=== PATIENT | male | born 1965 | race Caucasian/White ===

== ENCOUNTER 2018-01-26 19:45 | Emergency (ER) | payer MEDICAID, SELFPAY ==
[2018-01-26 19:50] VITALS: BP 164/99; PULSE 68; RESP 20; TEMP 36.8; O2SAT 97; BMI 25.9
--- NOTE | 2018-01-26 19:57 | XR_ITS ---
XR shoulder RT min 2V COMPARISON: None HISTORY: Right shoulder pain TECHNIQUE: 3 views right shoulder FINDINGS: The clavicle is intact. There is minor degenerative change of the AC joint with spurring superiorly and inferiorly. The humeral head and glenoid appear intact. There are no soft tissue calcifications. IMPRESSION: Mild degenerative changes of the AC joint, right shoulder negative for fracture
--- NOTE | 2018-01-26 21:31 | HMH.EDGENADL ---
ED Disposition Clinical Impression: Cervical radiculopathy Disposition: Home, Self-Care Condition on Discharge: Good Instructions: DI for Cervical Radiculopathy Additional Instructions: Follow-up with your primary care provider MRI of your cervical spine. Additional instructions for CONTROLLED SUBSTANCES: You have been prescribed a medication that is a controlled substance. Controlled substances include pain medications known as opiates and sedative nerve medications known as benzodiazepines. Some common opiates include: Codeine (such as Tylenol #3) Hydrocodone (Vicodin, Lortab, Lorcet, [place]) Oxycodone (Percocet, Percodan, Oxycodone, Oxy IR) Some common benzodiazepines include: Diazepam (Valium) Lorazepam (Ativan) Alprazolam (Xanax) Clonazepam (Klonopin) Oxazepam (Serax) All of these controlled substances are highly addictive and frequently abused. Misuse can and frequently does lead to addiction as well as overdose and . Medication should be stored in a locked cabinet or other secure storage unit. Do not store the medication in a motor vehicle. Short term supplies, 3 days or less, are prescribed because of the highly addictive nature of the medication. Any of the controlled substance medication NOT taken should be disposed of properly and NOT SAVED. The recommended method of disposing of unused medications is: Place the medicines in a sealable plastic bag. If the medicine is a solid, crush it or add water to dissolve it. Add something undesirable (cat litter, coffee grounds, etc.) Dispose of sealed bag in household trash Do not flush or pour unused medicines down a sink or drain. Controlled substances should not be shared, given away or sold. Because of the addictive nature and frequent abuse, these medications are sometimes stolen. These medications should be kept in a safe place where they cannot be stolen. Do not keep them in your car or purse. Lost or stolen prescriptions for controlled substances WILL NOT BE REFILLED in this emergency department, regardless of whether a police report was filed. Prescriptions: Oxycodone HCl/Acetaminophen [Percocet 5/325mg tablet] 1 tab PO Q6HP PRN #10 tab PRN Reason: Moderate To Severe Pain predniSONE [Prednisone 10mg Tab Dose-Pack] 10 mg PO DAILY #42 pack Referrals: Ghazala Moreno MD [Primary Care Provider] - - Critical Care Critical Care Time: No Attestation: On 01/26/18, the high probability of a clinically significant, sudden or life threatening deterioration of the following system(s) required my full and direct attention, intervention and personal management. The time I documented below is in addition to time spent performing reported procedures but includes the following listed in this critical care notation. Medical Decision Making - Doroteo Inquiry Pt receiving controlled substance: Yes Doroteo was queried for this patient: Yes Reference #:: [id number] Risks and benefits of using a controlled substance: were discussed with pt by me Comment: 2 rxs. last rx tramadol 06/13/17 Vital Signs: 01/26/18 19:50 Temperature 98.3 F Temperature Source Oral Pulse Rate [Right Radial] 68 Respiratory Rate 20 Blood Pressure [Right Arm] 164/99 Blood Pressure Mean [Right Arm] 120 Blood Pressure Position [Right Arm] Sitting 02 Sat by Pulse Oximetry 97 Orders (Tests/Meds): ED MEDICATIONS Discontinued Medications Generic Name Dose Route Start Last Admin Trade Name Maddie PRN Reason Stop Dose Admin Ketorolac Tromethamine 60 mg 01/26/18 19:57 01/26/18 20:00 Toradol 60mg/2ml Vial IM 01/26/18 19:58 60 mg ONCE ONE Administration Oxycodone/Acetaminophen 1 each 01/26/18 21:45 01/26/18 21:51 Percocet 5/325mg Tablet PO 01/26/18 21:46 1 each ONCE ONE Administration Prednisone 60 mg 01/26/18 21:45 01/26/18 21:51 Deltasone 20mg Tablet PO 01/26/18 21:46 60 mg ONCE ONE Administration - Radiology Data #1
[2018-01-26 22:04] VITALS: BP 146/92; PULSE 65; RESP 18; TEMP 36.7; O2SAT 98
== END 2018-01-26 22:04 | disposition home or self-care (01) ==
PROVIDERS: Emergency Provider Emergency Medicine; PCP Family Medicine
DX: M54.12 Radiculopathy, cervical region (principal); Z88.6 Allergy status to analgesic agent
CPT/HCPCS: 73030; 96372; 99282

== ENCOUNTER → 2018-11-01 11:09 | Outpatient (CLI) | payer MEDICAID, SELFPAY ==
--- NOTE | 2018-11-01 11:15 | XR_ITS ---
XR chest 2V HISTORY: ITS.REASON: SHORTNESS OF BREATH,FEVER AND CHILLS,CHEST PAIN AT REST ORDERING PHYSICIAN: Kassandra Baca PATIENT AGE: 52 years COMPARISON: 02/03/2017 FINDINGS: The cardiomediastinal silhouette and pulmonary vascularity are within normal limits. The lungs are clear without infiltrates, suspicious nodules, or pleural effusions. There is evidence of old granulomatous disease. No acute bony abnormalities. IMPRESSION: No change with no acute finding
== END ==
PROVIDERS: PCP Family Medicine; Visit Provider Nurse Practitioner
DX: R06.02 Shortness of breath (principal); R50.9 Fever, unspecified; R07.9 Chest pain, unspecified
CPT/HCPCS: 71046

== ENCOUNTER → 2019-12-31 08:34 | Outpatient (CLI) | payer OTHER, SELFPAY ==
--- NOTE | 2019-12-31 08:38 | US_ITS ---
PROCEDURE: US ABDOMEN LIMITED CLINICAL INDICATION: GALLSTONES,CHOLECYSTITIS COMPARISON: RUQ US RUQ-(ABD LTD)1ORGAN/QUAD/FU from 12/17/2014 FINDINGS: PANCREAS: Unremarkable. No obvious mass or abnormal fluid collection. No ductal dilatation LIVER: No focal liver lesions demonstrated. Homogeneous echogenicity. No intrahepatic biliary ductal dilatation evident. There is appropriate direction of blood flow within a non dilated portal vein RIGHT KIDNEY: Unremarkable. Normal size and echogenicity. No hydronephrosis GALLBLADDER: There are a few gallstones and a small amount of sludge with no gallbladder wall thickening or other ancillary finding of acute cholecystitis. Common bile duct is not dilated measuring 2.5 millimeters. IMPRESSION: Cholelithiasis without ancillary findings of acute cholecystitis. Dictated by: Vasile Garrett 12/31/2019 10:12 Electronically signed by Vasile Garrett in [place] 12/31/2019 10:12
== END ==
PROVIDERS: PCP Family Medicine; Visit Provider Nurse Practitioner
DX: K80.20 Calculus of gallbladder without cholecystitis without obstruction
CPT/HCPCS: 76705

== ENCOUNTER → 2020-05-05 09:35 | Outpatient (CLI) | payer OTHER, SELFPAY ==
--- NOTE | 2020-05-05 10:01 | XR_ITS ---
PROCEDURE: XR KNEE RT 3V CLINICAL INDICATION: RT KNEE INJURY,SWELLING COMPARISON: No exams were available for comparison FINDINGS: There is minor joint space narrowing medially and there is mild spurring of the tibial spines. The patella appears intact, there is no effusion. There is no fracture or loose body. IMPRESSION: Minor degenerative changes, no definite acute pathology seen Dictated by: Dr. Sekou Richards MD 05/05/2020 11:[address] Sekou Richards MD in [place] 05/05/2020 11:34
== END ==
PROVIDERS: PCP Nurse Practitioner Family; Visit Provider Nurse Practitioner Family
DX: S89.91XA Unspecified injury of right lower leg, initial encounter (principal); M25.461 Effusion, right knee
CPT/HCPCS: 73562

== ENCOUNTER → 2021-07-22 07:45 | Outpatient (CLI) | payer OTHER, SELFPAY ==
--- NOTE | 2021-07-22 07:46 | MR_ITS ---
PROCEDURE: MR HEAD/BRAIN WO CON CLINICAL INDICATION: aniscoria COMPARISON: No exams were available for comparison TECHNIQUE: Routine multiplanar multi echo sequences are performed without gadolinium enhancement. FINDINGS: No midline shift, mass effect, intracranial hemorrhage, or hydrocephalus is evident. The cerebellopontine angles, cerebellum, and mid brain have an unremarkable appearance. There is a small bandlike area of slight increase T2 and FLAIR signal extending from the right cerebral peduncle superiorly to the right painting radiata. This does not demonstrate restricted diffusion. This shows some increase in diffusion signal but no decrease in ADC signal.. No mass effect. This measures 9 mm transverse, 6 mm AP, and 3.5 cm cephalad caudad. The there are few other small T2 white matter hyperintensities. The pituitary, optic chiasm, corpus callosum, have an unremarkable appearance. There is minimal cerebellar ectopia of approximately 2-3 mm. No acute infarction. No mastoid effusion or sinus air-fluid level. There is mild mucosal thickening of the ethmoid sinuses. No acute intracranial hemorrhage. IMPRESSION: 1. Small bandlike area of slight increase in T2 signal extends from the right cerebral peduncle along the lateral aspect of the right thalamus and into the posterior aspect of the right painting radiata. This is of unknown clinical significance. This does not demonstrate restricted diffusion. This could be due to an area of microangiopathic gliotic changes. Demyelinating process such as multiple sclerosis is not excluded. Please correlate with clinical parameters. Recommend 3 month follow-up without and with gadolinium enhancement to confirm stability. 2. Scant periventricular T2 white matter hyperintensities nonspecific but may be due to ischemic gliotic foci Dictated by: Nelson Domínguez MD 07/23/2021 10:30 Nelson Domínguez MD in [facility] 07/23/2021 10:30
== END ==
PROVIDERS: PCP Nurse Practitioner Family; Visit Provider Nurse Practitioner Family
DX: H57.02 Anisocoria (principal); G25.9 Extrapyramidal and movement disorder, unspecified; R29.2 Abnormal reflex; R53.83 Other fatigue
CPT/HCPCS: 70551

== ENCOUNTER → 2021-08-04 07:31 | Outpatient (CLI) | payer OTHER, SELFPAY ==
--- NOTE | 2021-08-04 07:31 | MR_ITS ---
PROCEDURE: MR ANGIO HEAD WO CON CLINICAL INDICATION: abnormal brain mri, anisocoria COMPARISON: MR MR HEAD/BRAIN WO CON from 07/22/2021 TECHNIQUE: 3D [id number] images obtained with multi slab reformats. FINDINGS: No aneurysm, AVM, or major intracranial occlusive process evident. No significant stenotic lesions. Single-shot MRV has an unremarkable appearance. IMPRESSION: Negative MRA of brain Dictated by: Nelson Domínguez MD 08/05/2021 06:58 Nelson Domínguez MD in [facility] 08/05/2021 06:58
--- NOTE | 2021-08-04 08:08 | XR_ITS ---
PROCEDURE: XR CERVICAL SPINE W FLEX/EXT CLINICAL INDICATION: brisk reflexes COMPARISON: No exams were available for comparison FINDINGS: There is good alignment. Mild degenerative disc disease is present at C5-C6 and C7-T1 and C3-C4. Concavity involves the inferior endplate of C3 and C4. Minimal foraminal narrowing noted on the left at C3-C4. There is mild cervical curvature convex left with the head tilted toward the right. No cervical ribs. No fracture or dislocation. In neutral position there is approximately 2 mm anterolisthesis of C5 on C6. Flexion and extension views show no abnormal subluxation Other findings:None. IMPRESSION: Mild degenerative changes as described above with no abnormal subluxation in flexion or extension Dictated by: Nelson Domínguez MD 08/04/2021 12:24 Nelson Domínguez MD in [place] 08/04/2021 12:24
[2021-08-04 08:50] LABS: Basophils # 0.1 K/mm3 (0-0.2); Basophils % 1.8 % (0.1-2.0); Eosinophils # 0.6 K/mm3 (0.0-0.4); Eosinophils % 7.9 % (0.1-12.0); Hematocrit 45.1 % (42.0-52.0); Hemoglobin 15.3 g/dL (14.1-18.0); Lymphocytes # 2.2 K/mm3 (0.7-4.5); Lymphocytes % 31.8 % (10-50); Mean Corpuscular HGB Conc 33.9 g/dL (31.8-35.4); Mean Corpuscular Hemoglobin 33.6 pg (27.0-31.2); Mean Corpuscular Volume 99.3 fl (80-94); Monocytes # 0.3 K/mm3 (0.1-1.0); Neutrophils # 3.7 K/mm3 (1.8-7.8); Neutrophils % 53.5 % (37.0-80.0); Platelet Count 277 K/mm3 (142-424); Red Blood Count 4.54 M/mm3 (4.60-6.20); Red Cell Distribution Width 13.3 % (11.5-17.5); White Blood Count 6.9 K/mm3 (4.8-10.8)
[2021-08-04 09:29] LABS: Alanine Aminotransferase 14 U/L (12-78); Albumin Level 3.9 g/dl (3.5-5.0); Albumin/Globulin Ratio 1.6 (1.1-1.8); Alkaline Phosphatase 79 U/L (38-126); Anion Gap 13.5 mEq/L (5-15); Aspartate Amino Transferase 23 U/L (17-59); Bilirubin,Total 0.6 mg/dl (0.2-1.3); Blood Urea Nitrogen 18 mg/dl (9-20); Carbon Dioxide 29 mmol/L (22.0-30.0); Chloride 102 mmol/L (98-107); Estimated Glomerular Filt Rate 88 ml/min (>60); GFR (African American) 106 ML/MIN (>60); Globulin 2.4 g/dL (1.3-3.2); Glucose 105 mg/dl (74-100); Potassium 4.5 mmoL/L (3.5-5.1); Sodium 140 mmol/L (136-145); Total Protein,Serum 6.3 g/dl (6.3-8.2)
[2021-08-04 10:01] LABS: Thyroid Stimulating Hormone 1.86 uIU/mL (0.465-4.68)
[2021-08-04 10:36] LABS: Vitamin B12 438 pg/mL (239-931)
[2021-08-04 10:53] LABS: Folate 7.45 ng/mL
[2021-08-04 19:58] LABS: Ferritin 176 ng/ml (17.9-464)
[2021-08-05 12:12] LABS: Ceruloplasmin 18.5 mg/dL (16.0-31.0)
== END ==
PROVIDERS: PCP Nurse Practitioner Family; Visit Provider Nurse Practitioner Family
DX: G25.9 Extrapyramidal and movement disorder, unspecified (principal); R90.89 Other abnormal findings on diagnostic imaging of central nervous system; H57.02 Anisocoria; R29.2 Abnormal reflex
CPT/HCPCS: 36415; 70544; 72052; 80053; 82390; 82607; 82728; 82746; 84443; 85025

== ENCOUNTER → 2021-08-04 08:24 | Outpatient (CLI) | payer OTHER, SELFPAY | PROVIDERS: Visit Provider Nurse Practitioner Family | DX: G25.9 Extrapyramidal and movement disorder, unspecified (principal) | CPT/HCPCS: 36415; 80053; 82390; 82607; 82728; 82746; 84443; 85025 ==

== ENCOUNTER → 2021-08-31 12:03 | Outpatient (CLI) | payer OTHER, SELFPAY ==
--- NOTE | 2021-08-31 12:12 | XR_ITS ---
PROCEDURE: XR CHEST PORTABLE CLINICAL HISTORY: COVID OUTPATIENT COMPARISON: No exams were available for comparison FINDINGS: The cardiomediastinal silhouette and pulmonary vascularity are within normal limits. The lungs are clear without infiltrates, suspicious nodules, or pleural effusions. There is evidence of old granulomatous disease. No acute bony findings. IMPRESSION: No acute findings. Dictated by: Nelson Domínguez MD 08/31/2021 12:46 Nelson Domínguez MD in [place] 08/31/2021 12:46
[2021-08-31 12:35] LABS: Basophils # 0.1 K/mm3 (0-0.2); Eosinophils # 0.2 K/mm3 (0.0-0.4); Eosinophils % 2.2 % (0.1-12.0); Hematocrit 45.9 % (42.0-52.0); Hemoglobin 15.1 g/dL (14.1-18.0); Lymphocytes # 1.4 K/mm3 (0.7-4.5); Lymphocytes % 16.8 % (10-50); Mean Corpuscular HGB Conc 32.9 g/dL (31.8-35.4); Mean Corpuscular Hemoglobin 33.2 pg (27.0-31.2); Mean Platelet Volume 7.4 fl (7.4-10.4); Monocytes # 0.4 K/mm3 (0.1-1.0); Monocytes % 4.6 % (1.7-9.3); Neutrophils # 6.5 K/mm3 (1.8-7.8); Neutrophils % 75.3 % (37.0-80.0); Platelet Count 266 K/mm3 (142-424); Red Blood Count 4.54 M/mm3 (4.60-6.20); Red Cell Distribution Width 12.6 % (11.5-17.5); White Blood Count 8.6 K/mm3 (4.8-10.8)
[2021-08-31 12:50] LABS: Alanine Aminotransferase 17 U/L (12-78); Albumin Level 3.9 g/dl (3.5-5.0); Albumin/Globulin Ratio 1.4 (1.1-1.8); Alkaline Phosphatase 70 U/L (38-126); Aspartate Amino Transferase 27 U/L (17-59); Blood Urea Nitrogen 9 mg/dl (9-20); Calcium 8.7 mg/dl (8.4-10.2); Carbon Dioxide 28 mmol/L (22.0-30.0); Chloride 103 mmol/L (98-107); Estimated Glomerular Filt Rate 101 ml/min (>60); GFR (African American) 122 ML/MIN (>60); Globulin 2.8 g/dL (1.3-3.2); Glucose 114 mg/dl (74-100); Sodium 137 mmol/L (136-145); Total Protein,Serum 6.7 g/dl (6.3-8.2)
== END ==
PROVIDERS: PCP Nurse Practitioner Family; Visit Provider Nurse Practitioner Family
DX: Z20.822 Contact with and (suspected) exposure to COVID-19 (principal); R06.02 Shortness of breath; R50.9 Fever, unspecified
CPT/HCPCS: 36415; 71045; 80053; 85025; C9803; U0003; U0005

== ENCOUNTER 2021-09-01 08:00 | Outpatient (RCR) | payer OTHER, SELFPAY ==
--- NOTE | 2021-08-25 14:51 | HMH.PTOPEV ---
PT Outpatient Evaluation Rehab PT Outpatient Evaluation Start: 08/25/21 12:58 Freq: Status: Active Protocol: Document 08/25/21 14:43 PHORNE (Rec: 08/25/21 14:51 PHORNE [id number]) Electronically Signed By Eyal Green, PT 08/25/21 14:43 Outpatient Therapy Subjective History Subjective History Pt is 55 yowm who presents with c/o vertigo x ~ 10 yrs, 6 or 7 times a day every day. Pt reports his vertigo is almost alway positional, with tilting his head back or laying supine the most frequent cause of symptoms. He reports his symptoms last ~ 15-20 sec during ea episode. He reports intermittent nause with vertigo as well. He has hx of L ear tinnitus with decreased hearing also. He reports L eye cataract in need of surgical intervention and astigmatism. He also has hx of tremors in hands and legs for several years. * Ingris-halpike testing resulted in positive downbeating nystagmus, fast onset with quick relief with R side testing which is indicitive of R ASC canalithiasis. Chief Complaint Other Symptoms Relieved By Rest/Positioning Symptom Description Intermittent Balance Eval Chief Complaint vertigo Yes Nystagmus Nystagmus Presence Bilateral Nystagmus Description Ageotropic,Latency - Immediate Oculomotor Gaze Oculomotor Gaze Nml: Vergence Smooth Pursuit Saccades VOR Cancellation Cover/Uncover Cross Cover Outpatient Therapy Assessment Impairments Problems/Impairmments Impaired Balance,Impaired Self Care/Self Management Prognosis Rehab Potential Good Clinical Impression Consistent with Diagnosis Yes Short Term Goals Number of Weeks 4 Patient to be Ind w/ HEP Yes Usp Goals Number of Weeks 8 Improve Balance Yes Patient to be Ind w/ Advanced HEP Yes Outpatient Therapy Plan of Care Treatment Plan May
== END 2021-09-01 08:05 | disposition home or self-care (01) ==
LOC: PT 08:00
PROVIDERS: PCP Nurse Practitioner Family; Visit Provider Nurse Practitioner Family
DX: R42 Dizziness and giddiness (principal)
CPT/HCPCS: 97140; 97163

== ENCOUNTER 2021-09-21 06:45 | Day surgery (SDC) | payer OTHER, SELFPAY ==
[2021-09-21] VITALS (7 sets, daily range): BP systolic 109–140; BP diastolic 69–84; PULSE 63–83; RESP 16–18; TEMP 36.6–36.9; O2SAT 98–100; BMI 25.4
== END 2021-09-21 09:20 | disposition home or self-care (01) ==
LOC: OR 06:46
PROVIDERS: PCP Nurse Practitioner Family; Visit Provider Ophthalmology
PROC: (CPT 66984; principal; 2021-09-21 08:30)
DX: H25.812 Combined forms of age-related cataract, left eye (principal); H53.149 Visual discomfort, unspecified; Z96.1 Presence of intraocular lens; I10 Essential (primary) hypertension; Z88.6 Allergy status to analgesic agent; Z79.899 Other long term (current) drug therapy
CPT/HCPCS: 66984; V2632

== ENCOUNTER → 2021-11-15 13:03 | Outpatient (CLI) | payer OTHER, SELFPAY ==
--- NOTE | 2021-11-15 13:06 | XR_ITS ---
FINAL REPORT CLINICAL HISTORY: RT KNEE PAIN WITH SWELLING FINDINGS: 3 views of the right knee were obtained. There is no acute fracture or dislocation. There is sharpening of the tibial spines. The joint spaces are intact. There is no soft tissue abnormality. IMPRESSION: No acute process. Reviewed, Interpreted and Dictated by Andrew Torres MD Transcribed by Marcos Gunderson Authenticated by Andrew Torres MD on 11/15/2021 02:20:13 PM [facility]
== END ==
PROVIDERS: PCP Nurse Practitioner Family; Visit Provider Nurse Practitioner Family
DX: M25.561 Pain in right knee (principal); M25.461 Effusion, right knee
CPT/HCPCS: 73562

== ENCOUNTER → 2022-01-14 15:02 | Outpatient (CLI) | payer OTHER, SELFPAY ==
--- NOTE | 2022-01-14 15:06 | MR_ITS ---
FINAL REPORT CLINICAL HISTORY: RT MEDIAL KNEE PAIN, SWELLING OF RT KNEE JOINT. no injury or trauma FINDINGS: Multiplanar MR imaging of the right knee was performed without contrast. There is a horizontal tear of the posterior horn of the medial meniscus. The lateral meniscus is intact. The anterior and posterior cruciate ligaments are intact. The medial collateral ligament and lateral ligamentous complex are intact. The patellar and quadriceps tendons are intact. There is no evidence of fracture. There is mild medial compartment chondromalacia. A small joint effusion is seen. The musculature is intact. No soft tissue mass or cyst is identified. IMPRESSION: Tear of the posterior horn of the medial meniscus. Mild medial compartment chondromalacia. Small joint effusion. Reviewed, Interpreted and Dictated by Steven Brush III, MD Transcribed by Marcos Gunderson Authenticated by tSeven Brush III, MD on 01/14/2022 04:46:[address] [facility]
== END ==
PROVIDERS: PCP Nurse Practitioner Family; Visit Provider Nurse Practitioner Family
DX: M25.561 Pain in right knee (principal); M25.461 Effusion, right knee
CPT/HCPCS: 73721

== ENCOUNTER → 2022-02-23 08:43 | Outpatient (CLI) | payer OTHER, SELFPAY ==
--- NOTE | 2022-02-23 08:46 | XR_ITS ---
FINAL REPORT CLINICAL HISTORY: knee pain COMPARISON: MRI dated January 14, 2022 FINDINGS: 4 weight-bearing views of the right knee were obtained. There is no acute fracture or dislocation. The joint spaces demonstrate mild narrowing of the medial compartment. The soft tissues are unremarkable. IMPRESSION: Mild medial compartment narrowing. Please see report of prior MRI. Reviewed, Interpreted and Dictated by Andrew Torres MD Transcribed by Marcos Gunderson Authenticated by Andrew Torres MD on 02/23/2022 11:06:18 AM [facility]
== END ==
PROVIDERS: PCP Nurse Practitioner Family; Visit Provider Orthopaedic Surgery
DX: M25.561 Pain in right knee (principal)
CPT/HCPCS: 73564

== ENCOUNTER 2022-03-10 17:04 | Emergency (ER) | payer OTHER, SELFPAY ==
[2022-03-10 17:05] VITALS: BP 152/94; PULSE 73; RESP 18; TEMP 36.8; O2SAT 98; BMI 25.1
--- NOTE | 2022-03-10 17:38 | HMH.EDWNDL ---
ED Disposition Clinical Impression: Finger laceration Qualifiers: Encounter type: initial encounter Finger: index finger Damage to nail status: without damage Foreign body presence: without foreign body Laterality: right Qualified Code(s): S61.210A - Laceration without foreign body of right index finger without damage to nail, initial encounter Disposition: Home, Self-Care Condition on Discharge: Good Instructions: DI for Laceration Repair Additional Instructions: suture removal by pcp in 10 days follow up hand surgery if not better Prescriptions: Mupirocin [Bactroban 2% Ointment 22gm tube] 1 applicatio TP TID 10 Days #22 gm Transmission Status: Received by [id number] clindamycin HCL [Clindamycin HCl] 300 mg PO QID #40 cap Transmission Status: Received by [id number] Referrals: Gunjan Langley APRN [Primary Care Provider] - - Critical Care Critical Care Time: No Attestation: On 03/10/22, the high probability of a clinically significant, sudden or life threatening deterioration of the following system(s) required my full and direct attention, intervention and personal management. The time I documented below is in addition to time spent performing reported procedures but includes the following listed in this critical care notation. Medical Decision Making - Medical Records Medical records reviewed: Yes: I reviewed the patient's medical records. - Doroteo Inquiry Pt receiving controlled substance: No Vital Signs: 03/10/22 17:05 03/10/22 18:49 Temperature 98.3 F 98.3 F Temperature Source Oral Oral Pulse Rate 70 Pulse Rate [Left Radial] 73 Respiratory Rate 18 16 Blood Pressure 147/85 H Blood Pressure [Left Arm] 152/94 H Blood Pressure Mean [Left Arm] 113 Blood Pressure Source Automatic Cuff Blood Pressure Source [Left Arm] Automatic Cuff Blood Pressure Position Sitting Blood Pressure Position [Left Arm] Sitting 02 Sat by Pulse Oximetry 98 Oxygen Delivery Method Room Air Room Air Orders (Tests/Meds): ED MEDICATIONS Discontinued Medications Generic Name Dose Route Start Last Admin Trade Name Freq PRN Reason Stop Dose Admin Clindamycin Phosphate 600 mg 03/10/22 17:37 03/10/22 17:44 Clindamycin 900mg/6ml Vial IM 03/10/22 17:38 600 mg ONCE ONE Administration Tetanus/Reduced Diphtheria/Acell Pertussis 0.5 ml 03/10/22 17:21 03/10/22 17:41 Tet/Diphth/Pert-Adult 0.5ml Syringe IM 03/10/22 17:22 0.5 ml .ONCE ONE Administration Medical Decision Narrative: rt 2nd digit lac repair by me, 2cm, hib/sailine wash, no fb/bone/tendon seen, lido 1% plain, edges approx with 4-0 nylon x7 Wound/Laceration HPI - General Chief Complaint: Wound/Laceration Stated Complaint: AO04/28@1030 lac to finger Time Seen by Provider: 03/10/22 17:04 Mode of Arrival: Ambulatory Limitations: No Limitations Description of Symptoms (Recalled from ER Triage Doc. by RN): Laceration to tip of R pointer finger. pt reports cut finger with a sawzaw this morning at approx 1030. - History of Present Illness Onset (ago): hour(s) (1030am this morn zasaw accident lac rt 2nd digit distal phalynx) - Related Data Home Medications Medication Instructions Recorded Confirmed buspirone 10 mg tablet 10 mg PO BID tab 07/12/21 09/21/21 trazodone 100 mg tablet 100 mg PO HS tab 07/12/21 09/21/21 Previous Rx's Medication Instructions Recorded propranolol 40 mg tablet 40 mg PO BID 30 Days #60 tab 08/09/21 Mupirocin [Bactroban 2% Ointment 1 applicatio TP TID 10 Days #22 gm 03/10/22 22gm tube] clindamycin HCL [Clindamycin HCl] 300 mg PO QID #40 cap 03/10/22 Allergies Allergy/AdvReac Type Severity Reaction Status Date / Time codeine [CODEINE] Allergy Unknown Verified 02/23/22 09:31 [facility] History - Hepatitis A Screen Attestation statement:: This patient has been screened for Hepatitis A risk factors. Medical History: Reports:: Anxiety, Depression, Hype
--- NOTE | 2022-03-10 17:39 | XR_ITS ---
PROCEDURE INFORMATION: Exam: XR Right Finger(s) Exam date and time: 03/10/2022 5:46 PM Age: 56 years old Clinical indication: Injury or trauma; Other: Sawzall laceration to finger. ; Patient HX: Sawzall kicked back causing a laceration to right distal index finger. ; Additional info: Lac TECHNIQUE: Imaging protocol: XR Right fingers. Views: Minimum 2 views. COMPARISON: No relevant prior studies available. FINDINGS: Bones/joints: No acute fracture or dislocation. Minimal arthritis with some tiny spurs at the PIP joint and MCP joint. A prominent spur or hypertrophy of the tuft of the 3rd distal phalanx incidentally noted.There are no lytic skeletal lesions seen. No erosive destructive changes. Soft tissues: Soft tissue swelling and laceration in the index finger. No radiopaque foreign bodies. No pathologic soft tissue calcification. IMPRESSION: 1. Soft tissue swelling and laceration in the index finger. No radiopaque foreign body is seen in the soft tissues. 2. No acute fracture or dislocation.
[2022-03-10 18:49] VITALS: BP 147/85; PULSE 70; RESP 16; TEMP 36.8; O2SAT 98
== END 2022-03-10 18:50 | disposition home or self-care (01) ==
PROVIDERS: Emergency Provider Emergency Medicine; PCP Nurse Practitioner Family
DX: S61.210A Laceration without foreign body of right index finger without damage to nail, initial encounter (principal); I10 Essential (primary) hypertension; F32.A Depression, unspecified; F41.9 Anxiety disorder, unspecified; Z79.899 Other long term (current) drug therapy; Z88.5 Allergy status to narcotic agent; Z23 Encounter for immunization; Z87.442 Personal history of urinary calculi; Z87.898 Personal history of other specified conditions
CPT/HCPCS: 12001; 73140; 90471; 90715; 96372; 99285

== ENCOUNTER → 2023-10-26 14:40 | Outpatient (CLI) | payer OTHER, SELFPAY ==
[2023-10-26 15:06] LABS: Basophils # 0.1 K/mm3 (0-0.2); Eosinophils # 0.3 K/mm3 (0.0-0.4); Eosinophils % 4.8 % (0.1-12.0); Hematocrit 44.9 % (42.0-52.0); Hemoglobin 15.4 g/dL (14.1-18.0); Lymphocytes % 29.7 % (10-50); Mean Corpuscular HGB Conc 34.4 g/dL (31.8-35.4); Mean Corpuscular Hemoglobin 33.8 pg (27.0-31.2); Mean Corpuscular Volume 98.5 fl (80-94); Mean Platelet Volume 7.9 fl (7.4-10.4); Monocytes # 0.3 K/mm3 (0.1-1.0); Monocytes % 4.1 % (1.7-9.3); Neutrophils # 4.1 K/mm3 (1.8-7.8); Neutrophils % 60.5 % (37.0-80.0); Platelet Count 243 K/mm3 (142-424); Red Blood Count 4.56 M/mm3 (4.60-6.20); White Blood Count 6.8 K/mm3 (4.8-10.8)
[2023-10-26 15:24] LABS: Chloride 101 mmol/L (98-107); Sodium 139 mmol/L (136-145)
[2023-10-26 15:27] LABS: Alanine Aminotransferase 19 U/L (12-78); Albumin Level 4.5 g/dl (3.5-5.0); Albumin/Globulin Ratio 1.8 (1.1-1.8); Alkaline Phosphatase 68 U/L (38-126); Amylase 66 U/L (30-110); Aspartate Amino Transferase 24 U/L (17-59); Bilirubin,Total 1.2 mg/dl (0.2-1.3); Blood Urea Nitrogen 14 mg/dl (9-20); Calcium 8.7 mg/dl (8.4-10.2); Carbon Dioxide 34 mmol/L (22.0-30.0); Estimated Glomerular Filt Rate 87 ml/min (>60); GFR (African American) 106 ML/MIN (>60); Globulin 2.5 g/dL (1.3-3.2); Glucose 92 mg/dl (74-100); Lipase 68 U/L (23-300)
== END ==
PROVIDERS: PCP Family Medicine; Visit Provider Surgery
DX: R10.11 Right upper quadrant pain (principal)
CPT/HCPCS: 36415; 80053; 82150; 83690; 85025

== ENCOUNTER → 2023-10-27 08:23 | Outpatient (CLI) | payer OTHER, SELFPAY ==
--- NOTE | 2023-10-27 08:26 | CT_ITS ---
FINAL REPORT TECHNIQUE: After the administration of intravenous contrast, axial images were obtained through the abdomen and pelvis by computed tomography. Oral contrast was also administered. This study was performed with technique to keep radiation doses as low as reasonably achievable, (ALARA). Individualized dose reduction techniques using automated exposure control or adjustment of the MA and/or KV according to the patient's size were employed. CLINICAL HISTORY: upper quad pain FINDINGS: Abdomen: The lung bases are clear. The liver is normal in size and attenuation. Gallbladder is present. There are calcified granulomas in the spleen. The spleen is otherwise unremarkable. The adrenals are normal. The pancreas is unremarkable. The kidneys enhance appropriately. The aorta is normal in caliber. There is no free fluid or adenopathy. There is a large amount of stool throughout the colon and rectum with rectal distention up to 7.5 cm in diameter. Pelvis: The appendix is not identified. The urinary bladder is unremarkable. There is no free fluid or adenopathy. IMPRESSION: Constipation without evidence of obstruction. Reviewed, Interpreted and Dictated by Andrew Torres MD Transcribed by Sheeba Rodriguez Authenticated and [facility]
== END ==
PROVIDERS: PCP Family Medicine; Visit Provider Surgery
DX: R10.11 Right upper quadrant pain (principal)
CPT/HCPCS: 74177; Q9967

== ENCOUNTER 2023-12-04 07:00 | Day surgery (SDC) | payer OTHER, SELFPAY ==
[2023-11-29 10:26] VITALS: BMI 24.3
[2023-12-04] VITALS (16 sets, daily range): BP systolic 121–162; BP diastolic 71–95; PULSE 65–101; RESP 16–18; TEMP 36.2–43; O2SAT 93–99
--- NOTE | 2023-12-04 07:21 | P.HP_ITS ---
HPI HPI HPI: Patient is a 57-year-old male who presents for cholecystectomy. He had previously seen Dr. Ennis on 01/07/2020 as a referral from Maryan Thompson for evaluation of gallstones. Patient has a known history of gallstones. At that time, December 2019, he had been having some pain in the epigastrium and right upper quadrant with some associated postprandial nausea. He had an ultrasound done on 12/31/2019 which revealed cholelithiasis without ancillary findings of acute cholecystitis. There were notable to be a few gallstones with small amount of sludge with normal common bile duct. Of note, he had a previous ultrasound of his gallbladder on 12/17/2014 which revealed gallstones. He was scheduled for cholecystectomy with Dr. Ennis but this was canceled due to the COVID pandemic. Patient states that prior to evaluation in office on 10/26/23 his stomach has been killing me . He describes severe epigastric pain with radiation around to his upper quadrant. Patient also describes some chronic bowel irregularity and he does have an impending colonoscopy. He did undergo blood work and Dr. Moreno's office which I have obtained. They checked amylase and lipase which are within normal limits. I had him undergo CT scan due to the severity of his symptoms. This revealed large amount of stool throughout the colon and rectum with rectal distention up to 7.5 cm consistent with constipation. Blood work on 10/26/2023 was relatively unremarkable including liver function test, electrolytes, pancreatic enzymes. [facility] Disclaimer: The information contained in this section may have been updated after the patient was seen, as this information can be updated by other users. Medical History No significant past medical history Surgical History History of elbow surgery History of surgery on wrist Family History Other Family history of acute congestive heart failure Social History Smoking Status: Never smoker alcohol intake: never substance use type: denies use current occupational status: unemployed Travel in the last 8 weeks: None household members: significant other housing: house caffeine: Yes Review of Systems Review of Systems Review of systems:: pertinent systems reviewed and negative unless documented be low Meds Home Medications and Allergies Home Medications Medication Instructions Recorded Confirmed Type trazodone 100 mg tablet 100 mg PO HS sleep 07/12/21 11/29/23 History New Prescriptions to Start Prescriptions: Allergies Allergy/AdvReac Type Severity Reaction Status Date / Time codeine [CODEINE] Allergy Unknown Verified 12/04/23 07:23 Exam Constitutional Constitutional: no acute distress *Routine HEENT Exam Head: Present normocephalic Eye: Present EOMI and PERRL ENT: Present mucous membranes moist *Routine Neck Exam Neck: Present supple; Absent lymphadenopathy *Routine Respiratory Exam Respiratory: Present CTA bilaterally *Routine Cardiovascular Exam Cardiovascular: Present RRR *Routine Abdominal Exam Abdominal: Present soft and normoactive bowel sounds; Absent tenderness *Routine Rectal Exam Rectal:: deferred *Routine Genitalia Exam Genitalia:: deferred *Routine Extremities Exam Extremities: Absent cyanosis, clubbing or edema *Routine Skin Exam Skin: Present warm; Absent rash *Routine Neurological Exam Neurological: Present alert and oriented X3 Assessment and Plan *Assessment and plan (1) Gallstones: Status: Acute Category: Medical Code(s): K80.20 - Calculus of gallbladder without cholecystitis without obstruction Plan Plan to proceed with laparoscopic possibly open cholecystectomy. Nature and details of the proposed procedure along with associated risks and expected outcome were explained to the patient. Understands and agrees to proceed.
[2023-12-04] MEDS: LACTATED RINGERS 1000ML 1,000 ML 25 ML IV (07:30)
[2023-12-04 07:37] LABS: Basophils # 0.1 K/mm3 (0-0.2); Basophils % 1.2 % (0.1-2.0); Eosinophils # 0.5 K/mm3 (0.0-0.4); Eosinophils % 7.2 % (0.1-12.0); Hemoglobin 16.1 g/dL (14.1-18.0); Lymphocytes # 2.3 K/mm3 (0.7-4.5); Lymphocytes % 32.9 % (10-50); Mean Corpuscular HGB Conc 34.3 g/dL (31.8-35.4); Mean Corpuscular Hemoglobin 33.6 pg (27.0-31.2); Mean Corpuscular Volume 98.1 fl (80-94); Mean Platelet Volume 7.7 fl (7.4-10.4); Monocytes # 0.4 K/mm3 (0.1-1.0); Monocytes % 6.2 % (1.7-9.3); Neutrophils # 3.7 K/mm3 (1.8-7.8); Neutrophils % 52.6 % (37.0-80.0); Platelet Count 241 K/mm3 (142-424); Red Blood Count 4.79 M/mm3 (4.60-6.20); Red Cell Distribution Width 13.1 % (11.5-17.5)
[2023-12-04 07:47] LABS: Blood Urea Nitrogen 17 mg/dl (9-20); Calcium 8.6 mg/dl (8.4-10.2); Carbon Dioxide 32 mmol/L (22.0-30.0); Chloride 103 mmol/L (98-107); Creatinine Clearance Estimated 97 mL/min (50-200); Estimated Glomerular Filt Rate 87 ml/min (>60); GFR (African American) 106 ML/MIN (>60); Glucose 80 mg/dl (74-100); Sodium 142 mmol/L (136-145)
--- NOTE | 2023-12-04 08:04 | EXP.ANES.CKL ---
[facility] Disclaimer: The information contained in this section may have been updated after the patient was seen, as this information can be updated by other users. Medical History No significant past medical history Surgical History History of elbow surgery History of surgery on wrist Family History Other Family history of acute congestive heart failure Social History Smoking Status: Never smoker alcohol intake: never substance use type: denies use current occupational status: unemployed Travel in the last 8 weeks: None household members: significant other housing: house caffeine: Yes [facility] Anesthesia Checklist Patient Identification Patient Identification: Arm Band and Verbal (Name & ) Structural Data Admitted From: Home Planned Operative Procedure/s: Lap cholecystectomy Consent for Planned Operative Procedure(s) Verified: Yes NPO Status Verified Time NPO: 00:00 Chart Verification Results Verified: CBC and BMP Additional verifications Anesthesia Reactions: No Hx Blood Transfusions: No Blood Transfusion Reaction: No Airway Assessment Mallampati Score:: Class II C-Spine Mobility Assessed: Yes TMJ Mobility Assessed: Yes Dentition: Good Dentition Neurological Assessment Level of Consciousness: Awake Hx Seizures: No Numbness or tingling in extremities: No Anesthesia Plan Anesthesia Risk discussed: Yes Anesthesia Plan: Verified ASA Class: I Anesthesia Type: General
[2023-12-04 08:12] LABS: Anion Gap 10.6 mEq/L (5-15); Potassium 3.6 mmoL/L (3.5-5.1)
[2023-12-04] MEDS: CEFAZOLIN SODIUM 1 GM in 0.9 % SODIUM CHLORIDE 50 ML IV (08:40)
[2023-12-04] MEDS: ROPIVACAINE 0.5% 30ML VIAL 150 MG (09:15)
[2023-12-04] MEDS: LIDOCAINE 1% 20ML MDV 20 ML (09:15)
[2023-12-04] MEDS: SODIUM CHLORIDE IRRIG SOLUTION 3,000 ML 200 ML IR (09:16)
--- NOTE | 2023-12-04 09:46 | EXP.OP.NOTE ---
Date of procedure: 12/04/23 Pre-op Diagnosis:: Symptomatic gallstones Post-op Diagnosis:: Same Procedure performed:: Laparoscopic cholecystectomy Simple excision of skin lesion abdominal wall Surgeon:: Steven Garcia MD Anesthesia: BARBARA Estimated blood loss (mL): 15 Clinical Note:: Patient is a 57-year-old male who presents for cholecystectomy. He had previously seen Dr. Ennis on 01/07/2020 as a referral from Maryan Thompson for evaluation of gallstones. Patient has a known history of gallstones. At that time, December 2019, he had been having some pain in the epigastrium and right upper quadrant with some associated postprandial nausea. He had an ultrasound done on 12/31/2019 which revealed cholelithiasis without ancillary findings of acute cholecystitis. There were notable to be a few gallstones with small amount of sludge with normal common bile duct. Of note, he had a previous ultrasound of his gallbladder on 12/17/2014 which revealed gallstones. He was scheduled for cholecystectomy with Dr. Ennis but this was canceled due to the COVID pandemic. Patient states that prior to evaluation in office on 10/26/23 his stomach has been killing me . He describes severe epigastric pain with radiation around to his upper quadrant. Patient also describes some chronic bowel irregularity and he does have an impending colonoscopy. He did undergo blood work and Dr. Moreno's office which I have obtained. They checked amylase and lipase which are within normal limits. I had him undergo CT scan due to the severity of his symptoms. This revealed large amount of stool throughout the colon and rectum with rectal distention up to 7.5 cm consistent with constipation. Blood work on 10/26/2023 was relatively unremarkable including liver function test, electrolytes, pancreatic enzymes. Operative findings:: Distended gallbladder Somewhat enlarged liver with findings consistent with fatty infiltration Pigmented skin lesion at site of right lateral 5 mm trocar site Operative note:: Patient was taken to the operating room. He was given preoperative intravenous antibiotics. In the operating room he was placed in a supine position. General anesthesia was induced. Abdomen was prepped and draped in the standard surgical fashion. Subumbilical skin incision was made and while performing abdominal wall lift Veress needle was inserted. CO2 pneumoperitoneum was achieved to 15 mmHg. 11 mm optical trocar was inserted at the umbilicus. He was positioned in reverse Trendelenburg with left side down. He had some mild hepatomegaly with findings of mild fatty infiltration of the liver. He was positioned in reverse Trendelenburg left side down. There was a pigmented lesion at the site of planned right upper lateral trocar site insertion. Therefore this was excised with limited margins approximately 5 or 6 mm in length. Trocar was then inserted. Additional 5 mm trocar was inserted medial to this. 11 mm trocar was inserted in the epigastrium. Gallbladder was grasped retracted anteriorly and superiorly over the dome of the liver. Infundibulum of the gallbladder was retracted anterolaterally. Blunt dissection was carried out at the neck of the gallbladder bluntly incising the visceral peritoneum. Careful dissection was carried out identifying the cystic duct and cystic artery in the critical view of safety. Cystic duct was isolated, multiply clipped, and sharply divided. Cystic artery was carefully coagulated with YENY ultrasonic harmonic gail and divided. Gallbladder was dissected free from the liver in a retrograde fashion using YENY ultrasonic harmonic gail. Gallbladder was placed within an Endo Catch retrieval device and removed from the peritoneal cavity via the umbilical trocar site. Gallbladder fossa was inspected for hemostasis which was assured. Limited irrigation and suctioning was performed. Trocars were removed as CO2 pneumoperitoneum was evacuated. Fascia at the umbilicus was closed with 0 Vicryl suture. Local anesthetic was infiltrated. Anterior rectus fascia at the epigastric site was closed with 0 Vicryl suture. Skin was closed with 4-0 Monocryl subcuticular fashion. Dermabond was applied. Clean dry sterile dressing was applied. Condition: stable Disposition: PACU Complications:: None immediately apparent
--- NOTE | 2023-12-04 09:59 | EXP.ANES.I ---
[facility] Anesthesia Record Part I Anesthesia Record I Intake, IV Amount: 800 Hydration: Adequate Estimated blood loss (mL): 20 Urine output (mL): 0 Blood Products used (#): none Blood Pressure: 162/94 SaO2: 93 Pulse Rate: 94 Airway Patency: Patent Respiratory Rate: 18 Temperature: 97.1 F Patient is:: Drowsy and Stable Stable to PACU at:: 10:53
[2023-12-04] MEDS: MEPERIDINE 25MG/ML 1ML SYRINGE 12.5 MG IV (10:24)
[2023-12-04] MEDS: MORPHINE 2MG/ML SYRINGE 2 MG IV ×2 (10:35→10:41)
--- NOTE | 2023-12-04 12:05 | EXP.ANES.I ---
[facility] Anesthesia Record Part I Anesthesia Record I Intake, IV Amount: 900 Hydration: Adequate Estimated blood loss (mL): 15 Urine output (mL): 0 Blood Products used (#): none Blood Pressure: 159/89 SaO2: 93 Pulse Rate: 101 Airway Patency: Patent Respiratory Rate: 16 Temperature: 97.6 F Patient is:: Drowsy and Stable Stable to PACU at:: 11:55
--- NOTE | 2023-12-05 14:11 | EXP.ANES.II ---
[facility] Anesthesia Record Part II Anesthesia Record Part II Discharge Time: 10:53 Destination: Surgical Day Care (OP Surgery) PACU nurse assessment reviewed?: Yes Patient Condition:: Good Anesthesia Complications:: None Swallowing reflex intact?: Yes Airway Patency: Patent Cyanosis?: No Blood Pressure: 148/89 SaO2: 97 Respiratory Rate: 18 Pulse Rate: 75 Temperature: 98.2 F Mental Status: Alert & Oriented Pain level:: 4 Nausea and/or vomitting:: None Intake, IV Amount: 0 Hydration: Adequate
[2023-12-05 14:12] VITALS: BP 148/89; PULSE 75; RESP 18; TEMP 36.8; O2SAT 97
== END 2023-12-04 11:53 | disposition home or self-care (01) ==
PROVIDERS: PCP Family Medicine; Visit Provider Surgery
PROC: 0FT44ZZ Resection of Gallbladder, Percutaneous Endoscopic Approach (ICD-10-PCS; CPT 47562; principal; 2023-12-04 08:30)
DX: K80.10 Calculus of gallbladder with chronic cholecystitis without obstruction (principal); L81.4 Other melanin hyperpigmentation; L91.8 Other hypertrophic disorders of the skin
CPT/HCPCS: 47562; 11400; 80048; 85025; 96374; J2405